=== PATIENT | male | born 1965 | race Caucasian/White ===

== ENCOUNTER → 2016-06-14 | Outpatient (CLI) | payer SELFPAY ==
[~2016-06-14] MED LIST: ACET-62 PO; HYDR-4078 PO; IBUP-1724 PO; LISI1TAB13 PO
== END ==
LOC: NWCC 09:02
PROVIDERS: ATTEND Internal Medicine
DX: T81.89XA Other complications of procedures, not elsewhere classified, initial encounter (principal); Y83.8 Other surgical procedures as the cause of abnormal reaction of the patient, or of later complication, without mention of misadventure at the time of the procedure; R60.0 Localized edema
CPT/HCPCS: 11042

== ENCOUNTER → 2016-06-28 | Outpatient (CLI) | payer SELFPAY | LOC: NWCC 08:32 | PROVIDERS: ATTEND Internal Medicine | DX: T81.89XA Other complications of procedures, not elsewhere classified, initial encounter (principal); Y83.8 Other surgical procedures as the cause of abnormal reaction of the patient, or of later complication, without mention of misadventure at the time of the procedure; R60.0 Localized edema; S90.414A Abrasion, right lesser toe(s), initial encounter | CPT/HCPCS: 11042 ==

== ENCOUNTER → 2016-07-12 | Outpatient (CLI) | payer SELFPAY | LOC: NWCC 08:33 | PROVIDERS: ATTEND Internal Medicine | DX: T84.89XA Other specified complication of internal orthopedic prosthetic devices, implants and grafts, initial encounter (principal); Y83.8 Other surgical procedures as the cause of abnormal reaction of the patient, or of later complication, without mention of misadventure at the time of the procedure; R60.0 Localized edema; S90.414A Abrasion, right lesser toe(s), initial encounter | CPT/HCPCS: 11042 ==

== ENCOUNTER → 2016-07-26 | Outpatient (CLI) | payer SELFPAY ==
[~2016-07-26] MED LIST changes: +CALMOSEPTINE OINTMENT 3.5 G PACKET TOP ONE
== END ==
LOC: NWCC 09:00
PROVIDERS: ATTEND Internal Medicine
DX: T84.89XA Other specified complication of internal orthopedic prosthetic devices, implants and grafts, initial encounter (principal); Y83.8 Other surgical procedures as the cause of abnormal reaction of the patient, or of later complication, without mention of misadventure at the time of the procedure; R60.0 Localized edema; S90.414A Abrasion, right lesser toe(s), initial encounter; Z48.817 Encounter for surgical aftercare following surgery on the skin and subcutaneous tissue
CPT/HCPCS: 11042

== ENCOUNTER → 2016-08-16 | Outpatient (CLI) | payer SELFPAY ==
[~2016-08-16] MED LIST changes: -CALMOSEPTINE OINTMENT 3.5 G PACKET TOP ONE; +SALINE FLUSH 10ml SYRINGE IVF ONE
== END ==
LOC: NWCC 11:30
PROVIDERS: ATTEND Internal Medicine
DX: T84.89XA Other specified complication of internal orthopedic prosthetic devices, implants and grafts, initial encounter (principal); Y83.8 Other surgical procedures as the cause of abnormal reaction of the patient, or of later complication, without mention of misadventure at the time of the procedure; R60.0 Localized edema; S90.414A Abrasion, right lesser toe(s), initial encounter
CPT/HCPCS: 11042